=== PATIENT | male | born 2000 | race Two or more races ===

== ENCOUNTER 2024-06-08 21:32 | Emergency (ER) | payer OTHER ==
[~2024-06-08] VITALS: Ht 167.6 cm; Wt 59.0 kg
[2024-06-09] MEDS ORDERED: HYDROCODONE/CHLORPHEN P-STIREX 5 ML ML PO STA (02:03)
[2024-06-09 02:37] LABS: HEMOGLOBIN 16.2 g/dL (13-16.00); MEAN CELL VOLUME 88.1 fL (80.0-100.00); MEAN CORPUSCULAR HGB CONC 35.2 g/dl (32.0-36.0); RED BLOOD COUNT 5.22 M/uL (4.00-6.00); RED CELL DISTRIBUTION WIDTH 12.9 % (11.5-14.5)
[2024-06-09 02:39] LABS: PLATELET COUNT 127 K/uL (150-450)
== END 2024-06-09 04:48 | disposition home or self-care (01) ==
LOC: ER 21:34
DX: J10.1 Influenza due to other identified influenza virus with other respiratory manifestations (principal); Z20.822 Contact with and (suspected) exposure to COVID-19